=== PATIENT | male | born 1940 | race Caucasian/White ===

== ENCOUNTER → 2021-11-14 | Outpatient (REF) | payer MEDICARE ==
[~2021-11-14] MED LIST: AMLO5TAB2 PO; ASPI81TA85 PO; DONETAB5 PO; DOXY100C42 PO; FLUO20CA8 PO; HYDR-3644 PO; HYDR200T2 PO; INHALER INH; METO100T PO; MIRT15TA50 PO; OMEP20CA3 PO; PRED-351 PO; TYLE325T5 PO; [UNRECOGNIZED DRUG - CODE] PO
[2021-11-14 13:43] LABS: HEMATOCRIT 37.9 % (42.0-52.0); HEMOGLOBIN 11.5 g/dl (13.5-17.5); MEAN CORPUSCULAR HEMOGLOBIN 27.3 pg (27.0-33.0); MEAN CORPUSCULAR HGB CONC 30.3 g/dl (32.0-36.5); MEAN CORPUSCULAR VOLUME 89.8 fl (80.0-96.0); PLATELET COUNT, AUTOMATED 190 10^3/uL (150-450); RED BLOOD COUNT 4.22 10^6/uL (4.30-6.10); WHITE BLOOD COUNT 4.3 10^3/uL (4.0-10.0)
[2021-11-14 14:18] LABS: ALBUMIN 2.4 GM/DL (3.2-5.2); ALT/SGPT 7 U/L (12-78); BILIRUBIN,DIRECT 0.2 MG/DL (0.0-0.2); BILIRUBIN,TOTAL 0.5 MG/DL (0.2-1.0); BLOOD UREA NITROGEN 24 MG/DL (7-18); CALCIUM LEVEL 8.3 MG/DL (8.8-10.2); CARBON DIOXIDE LEVEL 28 MEQ/L (21-32); CHLORIDE LEVEL 113 MEQ/L (98-107); CREATININE FOR GFR 0.93 MG/DL (0.70-1.30); GLOMERULAR FILTRATION RATE > 60.0 (>35); GLUCOSE, FASTING 81 MG/DL (70-100); PROSTATIC SPECIFIC AG MONITOR 2.18 NG/ML (< 4.00); SODIUM LEVEL 146 MEQ/L (136-145); TOTAL PROTEIN 6.8 GM/DL (6.4-8.2)
[2021-11-14 14:19] LABS: HEMOGLOBIN A1c 5.3 %
== END ==
LOC: M LAB REF 13:14
PROVIDERS: ATTEND Family Medicine
DX: I10 Essential (primary) hypertension (principal); D64.9 Anemia, unspecified; E78.2 Mixed hyperlipidemia; R97.20 Elevated prostate specific antigen [PSA]

== ENCOUNTER → 2021-11-21 | Outpatient (REF) | payer MEDICARE ==
[2021-11-21 16:19] LABS: APPEARANCE, URINE CLEAR (CLEAR); BACTERIA, URINE AUTO NEGATIVE (NEGATIVE); BILIRUBIN, URINE AUTO NEGATIVE (NEGATIVE); BLOOD, URINE BLOOD NEGATIVE (NEGATIVE); CALCIUM OXALATE CRYSTALS MODERATE; COLOR, URINE YELLOW (YELLOW); GLUCOSE, URINE (UA) AUTO NEGATIVE (NEGATIVE); KETONE, URINE AUTO TRACE mg/dL (NEGATIVE); LEUKOCYTE ESTERASE, URINE AUTO NEGATIVE (NEGATIVE); NITRITE, URINE AUTO NEGATIVE (NEGATIVE); PROTEIN, URINE AUTO NEGATIVE (NEGATIVE); RBC, URINE AUTO 0 /HPF (0-3); SQUAMOUS EPITHELIAL CELL UR AU 0 /HPF (0-6); WBC, URINE AUTO 0 /HPF (0-3)
== END ==
LOC: M LAB REF 15:43
PROVIDERS: ATTEND Family Medicine
DX: R30.0 Dysuria (principal); N39.0 Urinary tract infection, site not specified

== ENCOUNTER 2022-07-20 11:38 | Emergency (ER) | payer MEDICARE ==
[~2022-07-20] VITALS: Ht 170.2 cm; Wt 56.8 kg
[2022-07-20] MEDS ORDERED: ONDA-83 (11:56)
[2022-07-20] MEDS ORDERED: MEMA10TA19 (11:56)
[2022-07-20] MEDS ORDERED: CARB25TA9 (11:56)
[2022-07-20] MEDS ORDERED: VITA100T59 PO (11:56)
[2022-07-20] MEDS ORDERED: NUPL34CA (11:56)
[2022-07-20] MEDS ORDERED: B-12100010 PO (11:56)
[2022-07-20] MEDS ORDERED: ATOR1TAB19 (11:56)
[2022-07-20] MEDS ORDERED: ELIQ5TAB (11:56)
[2022-07-20] MEDS ORDERED: METO1TAB32 PO (11:56)
[2022-07-20] MEDS ORDERED: SERT50TA29 (11:56)
[2022-07-20] MEDS ORDERED: GALZ50CA PO (11:56)
[2022-07-20] MEDS ORDERED: LIDOCAINE 2% 5ML JELLY UROJET TOP ONE (12:35)
[2022-07-20 13:45] LABS: BASO % 0.5 % (0.0-1.0); EOS # 0.1 10^3/uL (0.0-0.5); EOS % 1.4 % (0.0-3.0); HEMATOCRIT 44.6 % (42.0-52.0); HEMOGLOBIN 13.3 g/dl (13.5-17.5); LYMPH # 0.8 10^3/uL (1.5-5.0); LYMPH % 12.6 % (24.0-44.0); MEAN CORPUSCULAR HEMOGLOBIN 26.7 pg (27.0-33.0); MEAN CORPUSCULAR HGB CONC 29.8 g/dl (32.0-36.5); MEAN CORPUSCULAR VOLUME 89.6 fl (80.0-96.0); MONO # 0.7 10^3/uL (0.0-0.8); MONO % 10.6 % (2.0-8.0); NEUTROPHILS # 4.7 10^3/uL (1.5-8.5); NEUTROPHILS % 74.4 % (36.0-66.0); PLATELET COUNT, AUTOMATED 235 10^3/uL (150-450); RED BLOOD COUNT 4.98 10^6/uL (4.30-6.10); WHITE BLOOD COUNT 6.3 10^3/uL (4.0-10.0)
[2022-07-20 13:58] LABS: INR 2.03; PROTHROMBIN TIME 23.3 SECONDS (12.5-14.5)
[2022-07-20 13:59] LABS: PARTIAL THROMBOPLASTIN TIME 40.6 SECONDS (24.8-34.2)
[2022-07-20 14:43] LABS: ALBUMIN 2.8 GM/DL (3.2-5.2); BILIRUBIN,DIRECT 0.5 MG/DL (0.0-0.2); BILIRUBIN,TOTAL 1.2 MG/DL (0.2-1.0); TOTAL PROTEIN 7.5 GM/DL (6.4-8.2)
[2022-07-20] MEDS ORDERED: NS 1,000 ML IV ONE (15:00)
[2022-07-20] MEDS ORDERED: CIPROFLOXACIN 500MG TABLET PO ONE (18:00)
[2022-07-20] MEDS ORDERED: CIPR-249 PO (18:02)
[2022-07-20 18:31] VITALS: BP 156/82
== END 2022-07-20 18:33 | disposition home or self-care (01) ==
LOC: M ED 11:38
DX: N39.0 Urinary tract infection, site not specified (principal); R31.0 Gross hematuria; M62.81 Muscle weakness (generalized); J84.9 Interstitial pulmonary disease, unspecified; J44.9 Chronic obstructive pulmonary disease, unspecified; F03.90 Unspecified dementia, unspecified severity, without behavioral disturbance, psychotic disturbance, mood disturbance, and anxiety; G20 Parkinson's disease; N40.0 Benign prostatic hyperplasia without lower urinary tract symptoms; Z95.4 Presence of other heart-valve replacement; Z79.82 Long term (current) use of aspirin; Z79.01 Long term (current) use of anticoagulants; Z79.899 Other long term (current) drug therapy; Z88.2 Allergy status to sulfonamides; Z88.1 Allergy status to other antibiotic agents